=== PATIENT | male | born 1995 | race Caucasian/White ===

== ENCOUNTER 2017-11-26 12:53 | Emergency (ER) | payer MEDICAID ==
[~2017-11-26] VITALS: Ht 177.8 cm; Wt 77.0 kg
[2017-11-26 13:08] VITALS: BP 122/65
[2017-11-26] MEDS ORDERED: silver nitrate applicator stick TP ONE (13:20)
[2017-11-26] MEDS ORDERED: LIDOcaine 1%/PF 5ML 10 MG/ML VIAL IJ ONE (13:20)
[2017-11-26] MEDS ORDERED: LIDOcaine 1%/PF 5ML 10 MG/ML VIAL SQ ONE (13:45)
[2017-11-26] MEDS ORDERED: CEPH500C5 PO (14:19)
== END 2017-11-26 14:29 | disposition home or self-care (01) ==
LOC: ER 12:54
DX: L60.0 Ingrowing nail (principal); J45.909 Unspecified asthma, uncomplicated
CPT/HCPCS: 11730; 99283; J2001